=== PATIENT | male | born 1970 | race Caucasian/White ===

== ENCOUNTER 2018-03-24 12:31 | Emergency (ER) | payer OTHER ==
[2018-03-24] MEDS ORDERED: Sodium Chloride 0.9% 10 ML Syringe FLUSH PRN (13:01)
[2018-03-24] MEDS ORDERED: Albuterol 0.083% 2.5 MG/3 ML Neb Soln NEB ONE (13:02)
--- NOTE | 2018-03-24 13:08 | EDM.PDOC ---
ED HPI GENERAL MEDICAL PROBLEM - General Chief Complaint: Respiratory Problem Stated Complaint: INHALATION OF CHEMICAL YESTERDAY/PAIN IN LUNGS Time Seen by Provider: 03/24/18 12:42 Source of Information: Reports: Patient History Limitations: Reports: No Limitations - History of Present Illness INITIAL COMMENTS - FREE TEXT/NARRATIVE: Patient is a 42-year-old male presents ED complaining of substernal heavy chest. States this started yesterday while loading his trailer from a oil sight. Patient states initially he was wearing a mask without pressurized air while utilizing deicer to look up his hoses. Shortly after while loading his truck on top of the tank with pressurized air on he had the sensation of feeling agitated and drunk. He developed this pressure to his chest. States his H2S monitor was going off although he did not smell any H2S. He was in a low oxygen environment with no reported CO present. He states his CO monitor was indicating -14 which isn't accurate. States this morning he awoke at 4:00 with this heaviness to his chest and slightly short of breath with exertion. His pain to his chest is 2 out of 10 localized with no radiation described as minimal. He's had no previous history as such. States yesterday during this episode he did become dizzy that lasted for approximately 30 minutes and resolved. There's been no diaphoresis, nausea or vomiting, PND, orthopnea, cough present. States while standing on the tank his regulator did freeze up and was blowing pressurized air. He states he developed dryness to his throat. He has no history of coronary disease. He does carry a history of hypoglycemia were controlled with diet. Last A1c was 5.4. He has no history of hypertension or hypercholesterolemia. He is currently on no medications. He does not smoke. Alcohol use seldom. No recent sick exposures. He is concerned that he may have inhaled nauseous fumes causing irritation to his chest with shortness of breath. He at no times smelled any fumes. Middle Chest Pain Score (Numeric/FACES): 2 - Related Data Allergies Allergy/AdvReac Type Severity Reaction Status Date / Time codeine Allergy Rash Verified 03/24/18 12:42 Home Meds: Home Meds . [No Known Home Meds] 03/24/18 [History] Past Medical History Endocrine/Metabolic History: Reports: Diabetes, Type II Social & Family History - Tobacco Use Smoking Status *Q: Never Smoker - Recreational Drug Use Recreational Drug Use: No ED ROS GENERAL - Review of Systems Review Of Systems: ROS reveals no pertinent complaints other than HPI. ED EXAM, GENERAL - Physical Exam Exam: See Below Exam Limited By: No Limitations General Appearance: Alert, WD/WN, No Apparent Distress Ears: Hearing Grossly Normal Nose: Normal Inspection Throat/Mouth: Normal Voice, No Airway Compromise Head: Atraumatic, Normocephalic Neck: Normal Inspection, Supple, Non-Tender, Full Range of Motion Respiratory/Chest: No Respiratory Distress, Lungs Clear, Normal Breath Sounds, No Accessory Muscle Use, Chest Non-Tender Cardiovascular: Normal Peripheral Pulses, Regular Rate, Rhythm, No Edema, No JVD , No Murmur, No Rub GI/Abdominal: Normal Bowel Sounds, Soft, Non-Tender, No Organomegaly, No Distention Back Exam: Normal Inspection Extremities: Normal Inspection, Normal Range of Motion, Non-Tender, No Pedal Edema, Normal Capillary Refill Neurological: Alert, Oriented, CN II-XII Intact, Normal Cognition, No Motor/ Sensory Deficits Psychiatric: Normal Affect, Normal Mood Skin Exam: Warm, Dry, Intact, Normal Color, No Rash Course - Vital Signs Last Recorded V/S: Last Vital Signs Temp 99.4 F 03/24/18 12:44 Pulse 89 03/24/18 12:44 Resp 11 L 03/24/18 12:44 BP 161/108 H 03/24/18 12:44 Pulse Ox 100 03/24/18 13:02 - Orders/Labs/Meds Orders: Active Orders 24 hr Category Date Time Status EKG Documentation Completion [RC] STAT Care 03/24/18 13:00 Active Peripheral IV Care [RC] . DIRECTED Care 03/24/18 13:02 Active RT Aerosol Therapy [RC] ASDIRECTED Care 03/24/18 13:02 Active Peripheral IV Insertion Adult [OM.PC] Routine Oth 03/24/18 13:01 Ordered Labs: Laboratory Tests 03/24/18 03/24/18 03/24/18 Range/Units 13:00 13:50 13:50 WBC 5.25 (4.23-9.07) K/mm3 RBC 5.09 (4.63-6.08) M/mm3 Hgb 15.5 (13.7-17.5) gm/L Hct 45.1 (40.1-51.0) % MCV 88.6 (79.0-92.2) fl MCH 30.5 (25.7-32.2) pg MCHC 34.4 (32.2-35.5) g/dl RDW Std Deviation 42.8 (35.1-43.9) fL Plt Count 265 (163-337) K/mm3 MPV 9.3 L (9.4-12.3) fl Neutrophils % (Manual) 69 H (40-60) % Band Neutrophils % 0 (0-10) % Lymphocytes % (Manual) 26 (20-40) % Atypical Lymphs % 0 % Monocytes % (Manual) 2 (2-10) % Eosinophils % (Manual) 1 (0.8-7.0) % Basophils % (Manual) 2 H (0.2-1.2) Platelet Estimate Adequate RBC Morph Comment Normal PT (9.5-12.1) SECONDS INR APTT (24-31) SECONDS ABG Carboxyhemoglobin 1.6 H (0.00-1.50) %THgb Sodium 141 (136-145) mEq/L Potassium 4.3 (3.5-5.1) mEq/L Chloride 104 (98-107) mEq/L Carbon Dioxide 28 (21-32) mEq/L Anion Gap 13.3 (5-15) BUN 14 (7-18) mg/dL Creatinine 0.9 (0.7-1.3) mg/dL Est Cr Clr Drug Dosing TNP Estimated GFR (MDRD) > 60 (>60) mL/min BUN/Creatinine Ratio 15.6 (14-18) Glucose 115 H (74-106) mg/dL Calcium 9.5 (8.5-10.1) mg/dL Total Bilirubin 2.5 H (0.2-1.0) mg/dL AST 21 (15-37) U/L ALT 23 (16-63) U/L Alkaline Phosphatase 66 (46-116) U/L Troponin I < 0.017 (0.00-0.056) ng/mL C-Reactive Protein < 0.2 (<1.0) mg/dL Total Protein 7.6 (6.4-8.2) g/dl Albumin 4.4 (3.4-5.0) g/dl Globulin 3.2 gm/dL Albumin/Globulin Ratio 1.4 (1-2) 03/24/18 Range/Units 13:50 WBC (4.23-9.07) K/mm3 RBC (4.63-6.08) M/mm3 Hgb (13.7-17.5) gm/L Hct (40.1-51.0) % MCV (79.0-92.2) fl MCH (25.7-32.2) pg MCHC (32.2-35.5) g/dl RDW Std Deviation (35.1-43.9) fL Plt Count (163-337) K/mm3 MPV (9.4-12.3) fl Neutrophils % (Manual) (40-60) % Band Neutrophils % (0-10) % Lymphocytes % (Manual) (20-40) % Atypical Lymphs % % Monocytes % (Manual) (2-10) % Eosinophils % (Manual) (0.8-7.0) % Basophils % (Manual) (0.2-1.2) Platelet Estimate RBC Morph Comment PT 10.5 (9.5-12.1) SECONDS INR 0.96 APTT 30 (24-31) SECONDS ABG Carboxyhemoglobin (0.00-1.50) %THgb Sodium (136-145) mEq/L Potassium (3.5-5.1) mEq/L Chloride (98-107) mEq/L Carbon Dioxide (21-32) mEq/L Anion Gap (5-15) BUN (7-18) mg/dL Creatinine (0.7-1.3) mg/dL Est Cr Clr Drug Dosing Estimated GFR (MDRD) (>60) mL/min BUN/Creatinine Ratio (14-18) Glucose (74-106) mg/dL Calcium (8.5-10.1) mg/dL Total Bilirubin (0.2-1.0) mg/dL AST (15-37) U/L ALT (16-63) U/L Alkaline Phosphatase (46-116) U/L Troponin I (0.00-0.056) ng/mL C-Reactive Protein (<1.0) mg/dL Total Protein (6.4-8.2) g/dl Albumin (3.4-5.0) g/dl Globulin gm/dL Albumin/Globulin Ratio (1-2) Meds: Medications Discontinued Medications Generic Name Dose Route Start Last Admin Trade Name Freq PRN Reason Stop Dose Admin Albuterol 2.5 mg 03/24/18 13:02 03/24/18 13:18 Proventil Neb Soln NEB 03/24/18 13:03 2.5 mg ONETIME ONE Administration Sodium Chloride 10 ml 03/24/18 13:01 03/24/18 14:05 Saline Flush FLUSH 10 ml ASDIRECTED PRN Administration Keep Vein Open - Re-Assessments/Exams Free Text/Narrative Re-Assessment/Exam: Initial labs and studies include: CBC, chem 14, CRP, click studies, troponin, carboxyhemoglobin, chest x-ray one view, and EKG. I will also order for a peripheral IV to be started along with albuterol neb treatment 1. EKG sinus rhythm with RSR rate of 73 with normal QTC and OH interval. No acute ST changes noted. Chest x-ray impression: Reviewed with Dr. Downey with no acute findings. Final interpretation is pending. Labs reviewed: CBC essentially normal. Differential is pending. Carboxyhemoglobin 1.6 just barely above the upper threshold of normal. Sodium potassium, AG, creatinine, LFTs, troponin, CRP all within normal limits. 1441 Reassessment, vital signs stable. Patient states the breathing treatment did improve his discomfort to his chest. Suspect symptoms maybe related to breathing in pressurized, dry cold air while wearing mask with free flowing regulator. Patient has noted a irritation to his throat since wearing. He states he never smelled any chemicals suggesting inhalation of noxious fumes. This includes the deicer. I have offered to provide a albuterol inhaler to which the patient refuses. If related to the heart would suspect troponin be elevated since symptoms have been present for 20+ hrs. Patient agrees and will see occupational med provider this week for reevaluation. Return precautions have been discussed with the patient. He had no further questions or concern Departure - Departure Time of Disposition: 14:54 Disposition: Home, Self-Care 01 Condition: Good Clinical Impression: Atypical chest pain - Discharge Information Instructions: Nonspecific Chest Pain Referrals: PCP,Not In Area [Primary Care Provider] - Forms: ED Department Discharge, ED Return to Work/School Form Additional Instructions: Please followup with occupational med provider the first part of next week for reevaluation. Suspect symptoms maybe related to breathing in pressurized, dry cold air while wearing mask with free flowing regulator. Largely in part since you never smelled any noxious fumes with throat irritation since wearing the mask. Return to the E.D if you develop any new or worsening symptoms as discussed. - My Orders Last 24 Hours: My Active Orders 03/24/18 13:00 EKG Documentation Completion [RC] STAT 03/24/18 13:01 Peripheral IV Insertion Adult [OM.PC] Routine 03/24/18 13:02 Peripheral IV Care [RC] . DIRECTED RT Aerosol Therapy [RC] ASDIRECTED - Assessment/Plan Last 24 Hours: My Active Orders 03/24/18 13:00 EKG Documentation Completion [RC] STAT 03/24/18 13:01 Peripheral IV Insertion Adult [OM.PC] Routine 03/24/18 13:02 Peripheral IV Care [RC] . DIRECTED RT Aerosol Therapy [RC] ASDIRECTED
--- NOTE | 2018-03-25 08:24 | CR ---
Chest: Portable view of the chest was obtained. Comparison: No prior chest x-ray is available. Heart size and mediastinum are normal. Lungs are clear. Bony structures are grossly intact. Impression: 1. Nothing acute is seen on portable chest x-ray. Diagnostic code #1
== END 2018-03-24 15:15 | disposition home or self-care (01) ==
LOC: JD.ED 12:31
DX: R07.89 Other chest pain (principal); R06.02 Shortness of breath; E11.9 Type 2 diabetes mellitus without complications; Z88.5 Allergy status to narcotic agent
CPT/HCPCS: 36415; 71045; 71045-26; 80053; 82375; 84484; 85007; 85027; 85610; 85730; 86140; 93005; 94640; 99285-25

== ENCOUNTER 2021-06-22 23:36 | Emergency (ER) | payer SELFPAY | END 2021-06-23 02:03 | disposition home or self-care (01) | LOC: JD.ED 23:36 | DX: M79.605 Pain in left leg (principal); R21 Rash and other nonspecific skin eruption; E11.9 Type 2 diabetes mellitus without complications; I10 Essential (primary) hypertension; Z87.891 Personal history of nicotine dependence; Z88.5 Allergy status to narcotic agent | CPT/HCPCS: 36415; 82947; 85610; 85730; 93971-26-LT; 93971-LT; 99283; 99284-25 ==